=== PATIENT | female | born 1960 | race Two or more races ===

== ENCOUNTER 2023-03-19 18:02 | Emergency (ER) | payer OTHER ==
[~2023-03-19] VITALS: Ht 172.7 cm; Wt 56.7 kg
[2023-03-19] MEDS ORDERED: FLUOXETINE HCL60 MG PO (18:25)
[2023-03-19] MEDS ORDERED: POLYMYXIN B/TMP10 ML OP (20:59)
== END 2023-03-19 21:07 | disposition home or self-care (01) ==
LOC: ER 18:03
DX: H00.022 Hordeolum internum right lower eyelid (principal)